=== PATIENT | female | born 1990 | race African-American/Black ===

== ENCOUNTER 2019-06-29 19:21 | Emergency (ER) | payer MEDICAID ==
[~2019-06-29] VITALS: Ht 165.1 cm; Wt 59.0 kg
[2019-06-29 19:27] VITALS: BP 114/68
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
[2019-06-29] MEDS ORDERED: ACETAMINOPHEN ES 500 MG TABLET ONE (19:39)
--- NOTE | 2019-06-29 19:52 | NUR ---
Patient discharged to home in stable condition. Written and verbal after care instructions given. Patient verbalizes understanding of instruction. ambulatory with a steady gait
[2019-06-29] MEDS ORDERED: ACETAMINOPHEN ES 500 MG TABLET PO ONE (20:00)
== END 2019-06-29 19:57 | disposition home or self-care (01) ==
LOC: ER 19:23
DX: S80.01XA Contusion of right knee, initial encounter (principal); S09.8XXA Other specified injuries of head, initial encounter; V49.59XA Passenger injured in collision with other motor vehicles in traffic accident, initial encounter; Y93.89 Activity, other specified; Y92.413 State road as the place of occurrence of the external cause; Y99.8 Other external cause status